=== PATIENT | female | born 1965 | race Caucasian/White ===

== ENCOUNTER 2018-10-06 14:15 | Emergency (ER) | payer BC ==
[~2018-10-06] VITALS: Ht 167.6 cm; Wt 56.7 kg
[2018-10-06 14:24] VITALS: BP 103/50
[2018-10-06] MEDS ORDERED: SODIUM CHLORIDE 0.9% 1,000ML IVBOLUS ONE (14:30)
[2018-10-06] MEDS ORDERED: SODIUM CHLORIDE FLUSH 10ML SYR IVF ONE (14:30)
[2018-10-06 15:03] LABS: BASOPHILS # (AUTO) 0.02 x10^3/uL (0-0.1); BASOPHILS % (AUTO) 0 % (0-1); EOSINOPHILS # (AUTO) 0.04 x10^3/uL (0-0.4); EOSINOPHILS % (AUTO) 1 % (1-7); LYMPHOCYTES # (AUTO) 0.74 x10^3/uL (1-3.4); LYMPHOCYTES % (AUTO) 11 % (22-44); MD NO; MEAN CORPUSCULAR HEMOGLOBIN 29.5 pg (27.0-34.8); MEAN CORPUSCULAR HGB CONC 34.3 g/dL (32.4-35.8); MEAN CORPUSCULAR VOLUME 86.1 fL (80-100); MEAN PLATELET VOLUME 8.3 fL (7.4-10.4); MONOCYTES # (AUTO) 0.18 x10^3/uL (0.2-0.8); MONOCYTES % (AUTO) 3 % (2-9); NEUTROPHILS # (AUTO) 5.81 x10^3/uL (1.8-6.8); NEUTROPHILS % (AUTO) 86 % (42-75); PLATELET COUNT 159 x10^3/uL (130-400); RED BLOOD COUNT 4.03 x10^6/uL (3.82-5.3); RED CELL DISTRIBUTION WIDTH 14.2 % (9.6-15.2)
[2018-10-06 15:12] LABS: CHLORIDE 109 mmol/L (98-107)
--- NOTE | 2018-10-06 15:13 | NUR ---
Pt had small BM after inital enema, back on [facility], able to transfer from [facility] to [facility] without assistance. Pt states she feels as if there is more stool and feels a second enema would help, MD aware, will administer second
[2018-10-06 15:19] LABS: ALANINE AMINOTRANSFERASE 53 U/L (12-78); ALBUMIN 3.6 g/dL (3.4-5.0); ALKALINE PHOSPHATASE 66 U/L (45-117); ANION GAP 5 mmol/L (5-15); BILIRUBIN,TOTAL 0.7 mg/dL (0.2-1.0); CALCIUM 8.7 mg/dL (8.5-10.1); CREATININE 0.61 mg/dL (0.55-1.02); TOTAL PROTEIN 6.7 g/dL (6.4-8.2)
--- NOTE | 2018-10-06 15:48 | NUR ---
Pt reports she felt like she had a "Large" BM after the first enema. Pt states no longer in pain and feels comfortable going home. MD aware, chart up for recheck.
--- NOTE | 2018-10-06 16:11 | NUR ---
Pt states she is trying to get to her clinic to have port de-acssesed, ER notified, pt req if we are able to do that in ED, aware, awaiting heparinflush orders.
--- NOTE | 2018-10-06 16:33 | NUR ---
Port flushed with heparin and DC'd per policy after MD notified
== END 2018-10-06 16:59 | disposition home or self-care (01) ==
LOC: ED 16:20
DX: K56.41 Fecal impaction (principal); R10.31 Right lower quadrant pain; Z85.3 Personal history of malignant neoplasm of breast
CPT/HCPCS: 36415; 80053; 85025; 96360; 96361; 99283; J1642; J7030